=== PATIENT | female | born 1995 | race Caucasian/White ===

== ENCOUNTER 2017-07-16 15:04 | Emergency (ER) | payer OTHER ==
[2017-07-16] MEDS ORDERED: Ketorolac 60 MG/2 ML SDV IM ONE (15:54)
[2017-07-16] MEDS ORDERED: predniSONE 10 MG Tab PO ONE (15:59)
[2017-07-16 16:45] VITALS: BP 141/80
--- NOTE | 2017-07-16 21:07 | ER ---
DATE SEEN: 07/16/2017 TIME SEEN: 1545 hours. REASON FOR VISIT: Facial droop. HISTORY OF PRESENT ILLNESS: This is a 21-year-old female with facial droop that started about 2:00 about an hour and a half ago, associated with some numbness mostly to the left side. Also has a headache for about 5 days, which she describes as a migraine type. REVIEW OF SYSTEMS: No nausea. No visual disturbance. No fever or chills. PAST MEDICAL HISTORY: Tobacco abuse. MEDICATIONS: Reviewed. ALLERGIES: To diclofenac. PHYSICAL EXAMINATION: VITAL SIGNS: Blood pressure and temperature normal. Pulse 119. EARS, NOSE, AND THROAT: Negative. HEAD: Normocephalic. NECK: Supple. CARDIOVASCULAR: Normal. RESPIRATORY: Clear. NEUROLOGIC: Mild facial nerve palsy. LABORATORY DATA: A CT of the head was negative for acute process. IMPRESSION: Dubois's palsy. PLAN: A 60 mg of Toradol for the headache and then prednisone 10 mg b.i.d. to take at home. Follow up in the office in 24 hours. /[id number] DADA/SHANNANL
== END 2017-07-16 16:30 | disposition home or self-care (01) ==
LOC: FB.ED 15:04
DX: G51.0 Bell's palsy (principal)
CPT/HCPCS: 70450; 96372; 99284; A9270; J1885